=== PATIENT | male | born 1975 | race Caucasian/White ===

== ENCOUNTER 2024-04-12 19:26 | Emergency (ER) | payer MEDICAID ==
[~2024-04-12] VITALS: Ht 175.3 cm; Wt 77.9 kg
[2024-04-12 19:52] VITALS: O2SAT 98
[2024-04-12 21:08] LABS: BASOPHILS % 0.5 % (0.0-2.0); EOSINOPHILS % 0.3 % (0.0-5.0); HEMATOCRIT. 42.1 % (42.0-52.0); HEMOGLOBIN. 14.4 g/dL (14.0-18.0); MEAN CORPUSCULAR HEMOGLOBIN 28.1 pg (28.0-32.0); MEAN CORPUSCULAR HGB CONC 34.1 g/dL (31.0-37.0); MEAN CORPUSCULAR VOLUME 82.6 fL (80.0-94.0); MEAN PLATELET VOLUME 7.3 fl (7.4-10.4); MONOCYTES % 5.5 % (2.0-8.0); NEUTROPHILS % 72.7 % (40.0-76.0); PLATELET 402 x1000/uL (130-400); RED CELL DISTRIBUTION WIDTH 14.5 % (11.6-14.6); WHITE BLOOD COUNT 9.4 x1000/uL (4.5-11.0)
[2024-04-12 21:14] LABS: CHLORIDE 104 mEq/L (98-107); POTASSIUM 4.3 mEq/L (3.5-5.1); SODIUM 139 mEq/L (136-145)
[2024-04-12 21:16] LABS: CALCIUM 10.7 mg/dL (8.7-10.4); CARBON DIOXIDE 29 mEq/L (21-32)
[2024-04-12 21:22] LABS: GLUCOSE 101 mg/dL (70-105); UREA NITROGEN BLOOD 11 mg/dL (9-23)
[2024-04-12 21:23] LABS: ALANINE AMINOTRANSFERASE 41 IU/L (10-49); ASPARTATE AMINOTRANSFERASE 45 IU/L (<34)
[2024-04-12 21:24] LABS: BILIRUBIN DIRECT 0.3 mg/dL (<=3.0); BILIRUBIN TOTAL 1.6 mg/dL (0.1-1.0); PROTEIN TOTAL 9.1 g/dL (6.0-8.3)
[2024-04-12 23:58] LABS: CLARITY URINE CLEAR (CLEAR); COLOR URINE DARK YELLOW (YELLOW); GLUCOSE URINE NEGATIVE (NEGATIVE); KETONES URINE 3+ (NEGATIVE); LEUKOCYTE ESTERASE URINE NEGATIVE (NEGATIVE); NITRITE URINE NEGATIVE (NEGATIVE); OCCULT BLOOD URINE 2+ (NEGATIVE); PH URINE 5.5 (4.5-8.0); PROTEIN URINE 3+ (NEGATIVE); SPECIFIC GRAVITY URINE 1.034 (1.005-1.030)
[2024-04-13] MEDS: PANTOPRAZOLE 40MG DR TABLET PO ONE (00:53)
[2024-04-13] MEDS: ONDANSETRON 4MG ODT PO ONE (00:53)
[2024-04-13] MEDS: MAGNESIUM/ALUMINUM HYDROXIDE/SIMETHICONE 30ML UDC PO ONE (00:53)
[2024-04-13] MEDS ORDERED: OMEP40CA20 MT (01:24)
[2024-04-13] MEDS ORDERED: MAG-55 MT (01:24)
[2024-04-13 01:25] LABS: WBC URINE 0-2 /hpf (0-2)
[2024-04-13 01:29] LABS: BACTERIA URINE NONE SEEN; SQUAMOUS EPITHELIAL CELL URINE NONE SEEN /lpf (RARE/1+)
[2024-04-13 01:40] VITALS: BP 135/98; PULSE 66; RESP 18; TEMP 36.72516; O2SAT 98
== END 2024-04-13 01:42 | disposition home or self-care (01) ==
LOC: ER 19:26
DX: K21.9 Gastro-esophageal reflux disease without esophagitis (principal); K29.70 Gastritis, unspecified, without bleeding
CPT/HCPCS: 99285; 71045; 80076; 80048; 81003; 83690; 85025; 36415; 93005; 76705; Q0162